=== PATIENT | female | born 1940 | race African-American/Black ===

== ENCOUNTER 2017-11-07 08:15 | Emergency (ER) | payer MEDICARE ==
[~2017-11-07] VITALS: Ht 167.6 cm; Wt 88.6 kg
[2017-11-07 08:32] VITALS: Ht 167.6 cm; Wt 88.6 kg
[2017-11-07] MEDS ORDERED: ZESTRIL40 MG PO (08:41)
[2017-11-07] MEDS ORDERED: AZOR 5-40 MG TA1 TAB PO (08:41)
[2017-11-07] MEDS ORDERED: HYDROCHLOROTHIA25 MG PO (08:42)
[2017-11-07 10:07] LABS: BASOPHILS 0.3 % (0-2); EOSINOPHILS 4.2 % (0-7); HEMOGLOBIN 14.6 g/dL (12-16); IMMATURE GRANULOCYTES 0.3 % (0-5); LYMPHOCYTES 28.3 % (15-50); MCH 30.2 pg (26.0-34.0); MCHC 34.8 g/dL (31.0-37.0); MEAN PLATELET VOLUME 9.6 fL (7.4-10.4); NEUTROPHILS 57.9 % (40-80); PLATELET COUNT 242 10x3/uL (130-400); RBC 4.83 10x6/uL (4.00-5.40); RDW 12.7 % (11.5-14.5); WBC 6.6 10x3/uL (4.8-10.8)
[2017-11-07 10:13] LABS: APPEARANCE HAZY (CLEAR); BILIRUBIN NEGATIVE (NEGATIVE); COLOR YELLOW (YELLOW); GLUCOSE NEGATIVE (NEGATIVE); KETONE SMALL mg/dL (NEGATIVE); NITRITE NEGATIVE (NEGATIVE); PROTEIN TRACE mg/dL (NEGATIVE); UROBILINOGEN NORMAL (NORMAL)
[2017-11-07 10:13] LABS: APTT 23.6 SECONDS (22.8-39.4); INR 1.01 (0.85-1.17); PROTIME 12.9 SECONDS (11.6-15.0)
[2017-11-07 10:14] LABS: D-DIMER-QUANTITATIVE 2.47 ug/mLFEU (0.20-0.54)
[2017-11-07 10:15] LABS: BACTERIA MODERATE /hpf (NONE SEEN); MUCUS <1+ /lpf (NONE SEEN); RED CELLS - URINE 0-5 /hpf (0-5)
[2017-11-07 10:16] LABS: HYALINE CAST OCC /lpf (NONE SEEN)
[2017-11-07 10:21] LABS: ALBUMIN 3.8 g/dL (3.4-5.0); ALKALINE PHOSPHATASE 90 U/L (46-116); ALT (SGPT) 26 U/L (10-68); CALC OSMOLALITY 287 mosm/kg (275-300); CALCIUM 9.6 mg/dL (8.5-10.1); CARBON DIOXIDE 26.7 mmol/L (21.0-32.0); CHLORIDE - SERUM 105 mmol/L (98-107); GLUCOSE 116 mg/dL (74-106); POTASSIUM - SERUM 3.8 mmol/L (3.5-5.1); SODIUM 142 mmol/L (136-145); UREA NITROGEN 24 mg/dL (7-18); eGFR NON AFRICAN AMERICAN 57 mL/min (90-120)
[2017-11-07 10:36] LABS: CREATINE KINASE 290 UL (21-215); MAGNESIUM - SERUM 2.2 mg/dL (1.8-2.4); THYROID STIMULATING HORMONE 2.94 uIU/mL (0.36-3.74)
[2017-11-07 10:37] LABS: TROPONIN-I < 0.017 ng/mL (0.000-0.060)
[2017-11-07] MEDS ORDERED: KEFLEX500 MG PO (13:29)
[2017-11-07] MEDS ORDERED: MACROBID100 MG PO (13:29)
[2017-11-07 17:53] VITALS: BP 149/65
== END 2017-11-07 14:30 | disposition home or self-care (01) ==
LOC: D.ER 08:15
PROVIDERS: Family Medicine
DX: R41.82 Altered mental status, unspecified (principal); N39.0 Urinary tract infection, site not specified; G81.91 Hemiplegia, unspecified affecting right dominant side